=== PATIENT | male | born 1960 | race Caucasian/White ===

== ENCOUNTER → 2016-05-06 | Outpatient (CLI) | payer BC | END | disposition home or self-care (01) | LOC: C.LABMFLN 07:32 | PROVIDERS: ATTEND Family Medicine | DX: R53.83 Other fatigue (principal) ==

== ENCOUNTER → 2016-05-12 | Outpatient (CLI) | payer BC ==
--- NOTE | 2016-05-12 11:07 | DIAGNOSTIC IMAGING REPORT ---
KUB CLINICAL HISTORY: N20.1 Ureteral calculus, left L ureteral [id number] COMPARISON STUDY: No previous studies for comparison. FINDINGS: The renal shadows are partially obscured by overlying bowel gas and fecal material. No renal calculi are visualized. There is no pathologic bowel dilatation. Pelvic basin calcifications while nonspecific likely represent phleboliths. IMPRESSION: 1. No evidence of pathologic bowel dilatation 2. No renal calculi identified. Nonspecific pelvic basin calcifications, likely representing phleboliths Electronically signed by: Cj Pierre M.D. 05/12/2016 11:06 AM Dictated Date/Time: 05/12/2016 11:04 AM
--- NOTE | 2016-05-12 11:12 | DIAGNOSTIC IMAGING REPORT ---
(BARIUM SWALLOW) ESOPHAGUS CLINICAL HISTORY: R13.10 [id number] fullness when eating. COMPARISON STUDY: None FLUOROSCOPY TIME: 1.1 minutes. 27 fluoroscopic spot images were acquired.. FINDINGS: The patient swallowed effervescent granules and barium without difficulty. No esophageal masses or ulcerations are visualized. The swallowing mechanics appeared normal. There is a tiny sliding hiatal hernia. There is disordered esophageal motility. The patient was administered 1/2 inch barium tablet. He swallowed this without difficulty. This freely passed into the stomach. IMPRESSION: Tiny sliding hiatal hernia. Mildly disordered esophageal motility. No masses identified. Electronically signed by: Cj Pierre M.D. 05/12/2016 11:11 AM Dictated Date/Time: 05/12/2016 11:10 AM
== END | disposition home or self-care (01) ==
LOC: C.RAD 10:25
PROVIDERS: ATTEND Family Medicine
DX: N20.1 Calculus of ureter (principal); R13.10 Dysphagia, unspecified

== ENCOUNTER → 2016-08-20 | Outpatient (CLI) | payer BC ==
[2016-08-20 13:42] LABS: ALT/SGPT 36 U/L (12-78); AST/SGOT 21 U/L (15-37); BLOOD UREA NITROGEN 17 mg/dl (7-18); BUN/CREATININE RATIO 16.6 (10-20); CARBON DIOXIDE 28 mmol/L (21-32); CHLORIDE 104 mmol/L (98-107); CHOLESTEROL 142 mg/dl (0-200); GLUCOSE 104 mg/dl (70-99); SODIUM 141 mmol/L (136-145); TRIGLYCERIDES 110 mg/dl (0-150); VERY LOW DENSITY LIPOPROT CALC 22 mg/dl
[2016-08-20 13:45] LABS: ALB/GLOB RATIO 1.3 (0.9-2); ALKALINE PHOSPHATASE 72 U/L (45-117); CHOLESTEROL/HDL RATIO 3.3; HDL CHOLESTEROL 43 mg/dl; LDL CHOLESTEROL CALCULATED 77 mg/dl
[2016-08-20 13:47] LABS: CALCIUM 9.2 mg/dl (8.5-10.1); ESTIMATED AVERAGE GLUCOSE 134 mg/dl; HA1C FLAG Normal (Normal)
== END | disposition home or self-care (01) ==
LOC: C.LABMFLN 09:44
PROVIDERS: ATTEND Family Medicine
DX: E11.9 Type 2 diabetes mellitus without complications (principal); E78.00 Pure hypercholesterolemia, unspecified; Z12.5 Encounter for screening for malignant neoplasm of prostate

== ENCOUNTER → 2017-08-04 | Outpatient (CLI) | payer BC ==
[2017-08-04 13:28] LABS: HEMOGLOBIN A1C 6.6 % (4.5-5.6)
[2017-08-04 14:50] LABS: ALKALINE PHOSPHATASE 75 U/L (45-117); ALT/SGPT 37 U/L (12-78); AST/SGOT 21 U/L (15-37); BLOOD UREA NITROGEN 17 mg/dl (7-18); CALCIUM 8.7 mg/dl (8.5-10.1); CARBON DIOXIDE 28 mmol/L (21-32); CHOLESTEROL 135 mg/dl (0-200); CREATININE 1.18 mg/dl (0.60-1.40); GLUCOSE 109 mg/dl (70-99); LDL CHOLESTEROL CALCULATED 71 mg/dl; POTASSIUM 4.3 mmol/L (3.5-5.1); SODIUM 140 mmol/L (136-145); TOTAL PROTEIN 7.4 gm/dl (6.4-8.2)
== END | disposition home or self-care (01) ==
LOC: C.LABMFLN 08:24
PROVIDERS: ATTEND Family Medicine
DX: E11.9 Type 2 diabetes mellitus without complications (principal); E78.00 Pure hypercholesterolemia, unspecified; Z12.5 Encounter for screening for malignant neoplasm of prostate

== ENCOUNTER 2024-04-26 06:22 | Observation (INO) ==
--- NOTE | 2024-04-18 08:56 | Anesthesiology Consultation ---
Date of Service April 18, 2024 Assessment & Plan (1) Encounter for pre-operative examination: Chart Review Chart Review: Acceptable Risk for Surgery and Patient NOT seen in Pre Admission Testing - Check BSG AM DOS -Infectious Disease screening: Per PAT nursing assessment on 04/12/24. No known infectious disease contacts in past 10 days or current infectious disease symptoms. No recent travel outside the country. Patient seen by PCP 02/08/24= seen for follow up. Recently diagnosed with prostate cancer. Scheduled for robot assisted prostatectomy which is to be done by Dr. Mason on April 26, 2024. Aovid ASA and NSAIDs one week before surgery. Take amlodipine and pantoprazole DOS with 1-2 sips of water. For DM- hold Metformin starting 04/26/24- recheck creatinine 04/30/24- if acceptable- can restart Metformin. DM- Hgb A1C slightly increased. Metformin increased. Cholesterol- well controlled. Left third middle trigger finger- recommended hand specialist. History Surgery Operation Date: 04/26/24 07:30 Proposed Procedures p Robotic Assisted Laparoscopic Radical Retropubic Prostatectomy, Possible Open, Possible Pelvic Lymph Node Dissection - Dameon Mason MD Height/Weight Height: 5 ft 9 in Weight: 80.739 kg Allergies Allergy/AdvReac Type Severity Reaction Status Date / Time bee venom protein (honey bee) Allergy Severe breathing Verified 04/12/24 12:23 difficulty Medications Home Medications Medication Instructions Recorded Confirmed Last Taken ascorbic acid (vitamin C) 1,000 mg 1 g PO DAILY 07/23/21 04/12/24 07/27/21 tablet (Vitamin C) triamcinolone acetonide 55 mcg 2 spray intranasal DAILY PRN 10/27/23 04/12/24 Unknown nasal spray aerosol Eustachian tube dysfunction #16.9 mL Beets w/COQ 10 1 tab PO DAILY 01/05/24 04/12/24 Unknown magnesium oxide 400 mg PO QAM 01/05/24 04/12/24 Unknown zinc gluconate 50 mg tablet 50 mg PO QAM 01/05/24 04/12/24 Unknown atorvastatin 80 mg tablet 80 mg PO QPM #90 tabs 03/20/24 04/12/24 Unknown metformin 500 mg tablet 500 mg PO .COMPLEX #360 tabs 03/20/24 04/12/24 Unknown amlodipine 2.5 mg tablet 2.5 mg PO QAM 04/12/24 04/12/24 Unknown cinnamon bark 500 mg capsule 500 mg PO HS 04/12/24 04/12/24 Unknown (Cinnamon) losartan 100 mg tablet 100 mg PO QAM 04/12/24 04/12/24 Unknown pantoprazole 40 mg tablet,delayed 40 mg PO QAM 04/12/24 04/12/24 Unknown release (Protonix) Past Medical History Medical History (Updated 04/18/24 @ 08:51 by Lynda Godinez PA-C) Arthritis Diabetes mellitus, type 2 Esophageal dysmotility Mild per 06/2021 barium swallow study GERD (gastroesophageal reflux disease) "SILENT" Hyperlipidemia Hypertension Prostate cancer reason for surgery Past Family History Family History Mother , in her late 70s Cancer Pt uncertain of type of cancer Father , in his mid 70s Mesothelioma Diabetes Brother Hypertension Diabetes Hypercholesterolemia Sister No problems noted. Sister No problems noted. Son No problems noted. Grandfather (Paternal) Prostate cancer Other No family history of adverse response to anesthesia No family history of bleeding disorder No pertinent family history Denies family history of Heart disease Stroke Asthma Past Surgical History Surgical History H/O prostate biopsy History of colonoscopy History of esophagogastroduodenoscopy (EGD) History of knee surgery right History of tooth extraction Hx of repair of left rotator cuff [place] teeth removed Social History Smoking Status: Never smoker Do You Dip or Chew Tobacco: No Hx Alcohol Use: No alcohol intake frequency: holidays/special occasions only Hx Substance Use: No substance use type: does not use Lab Results Anesthesia Preop Results Results Anesthesia Widget: WBC 5.31 K/ul (4.8-10.8) 04/17/24 Hgb 13.4 g/dl (14.0-18.0) L 04/17/24 Hct 39.4 % (42.0-52.0) L 04/17/24 Plt 290 K/uL (130-400) 04/17/24 Na 136 mmol/L (136-145) 04/17/24 K 4.4 mmol/L (3.5-5.1) 04/17/24 Cl 101 mmol/L (98-107) 04/17/24 CO2 29 mmol/L (21-32) 04/17/24 BUN 26 mg/dl (6-23) H 04/17/24 Creat 1.30 mg/dl (0.6-1.4) 04/17/24 Glucose Level 151 mg/dl (70-99(Fasting)) H 04/17/24 Testing Laboratory Results 04/17/24= URINE CULTURE: Results pending (will leave final results to discretion of surgeon to review and determine how to proceed) Electrocardiogram Date: 04/17/24 Findings: + NSR @ (86bpm) Normal EKG per cardio Chest X-Ray Date: 04/17/24 Findings: + NAD
[2024-04-26] MEDS ORDERED: ROCURONIUM BROMIDE 10 MG/ML 5 ML VIAL IV ONE ×2 (06:54→08:05)
[2024-04-26] MEDS ORDERED: PROPOFOL IV EMULSION 10 MG/ML 20 ML VIAL IV ONE ×4 (06:54→09:46)
[2024-04-26] MEDS ORDERED: DEXAMETHASONE SOD INJ 4 MG/ML VIAL ONE (06:54)
[2024-04-26] MEDS ORDERED: LIDOCAINE 2% 2 ML VIAL/AMP(20MG/ML) INFIL ONE (06:54)
[2024-04-26] MEDS ORDERED: ONDANSETRON INJ 2 MG/ML 2 ML VIAL ONE (06:54)
[2024-04-26] MEDS ORDERED: fentaNYL citrate PF 100 MCG/2 ML VIAL ONE ×2 (06:55→08:19)
[2024-04-26] MEDS ORDERED: MIDAZOLAM HCL 1 MG/ML 2ML VIAL ONE (06:55)
[2024-04-26] MEDS ORDERED: PHENYLEPHRINE HCL 10 MG/ML VIAL ONE (06:55)
[2024-04-26] MEDS: HEPARIN SOD 5,000 UNIT/0.5 ML VIAL SQ SCH ×2 (06:58→20:13)
[2024-04-26] MEDS: LACTATED RINGER'S 1,000 ML IV SCH (06:59)
[2024-04-26] MEDS: LR 15ML/HR IV SCH (06:59)
--- NOTE | 2024-04-26 07:16 | History & Physical Report ---
Date of Service April 26, 2024 Assessment & Plan (1) Prostate cancer: Plan: We reviewed the plan for robot-assisted radical prostatectomy, bilateral pelvic lymph node dissection. We reviewed risks and benefits of surgery. He expressed understanding and would like to proceed with surgery. History of Present Illness Primary Care Provider: Tj Coronado MD This 63-year-old male followed by urology for prostate cancer. He presents to the OR today for robot-assisted radical prostatectomy and pelvic lymph node dissection. He denies any changes in his health. Allergies Allergy/AdvReac Type Severity Reaction Status Date / Time bee venom protein (honey bee) Allergy Severe breathing Verified 04/26/24 06:41 difficulty Home Medications Medication Instructions Recorded Confirmed Type ascorbic acid (vitamin C) 1,000 mg 1 g PO DAILY 07/23/21 04/26/24 History tablet (Vitamin C) triamcinolone acetonide 55 mcg 2 spray intranasal DAILY PRN 10/27/23 04/26/24 Rx nasal spray aerosol Eustachian tube dysfunction #16.9 mL Beets w/COQ 10 1 tab PO DAILY 01/05/24 04/26/24 History magnesium oxide 400 mg PO QAM 01/05/24 04/26/24 History zinc gluconate 50 mg tablet 50 mg PO QAM 01/05/24 04/26/24 History atorvastatin 80 mg tablet 80 mg PO QPM #90 tabs 03/20/24 04/26/24 Rx metformin 500 mg tablet 500 mg PO .COMPLEX #360 tabs 03/20/24 04/26/24 Rx amlodipine 2.5 mg tablet 2.5 mg PO QAM 04/12/24 04/26/24 History cinnamon bark 500 mg capsule 500 mg PO HS 04/12/24 04/26/24 History (Cinnamon) losartan 100 mg tablet 100 mg PO QAM 04/12/24 04/26/24 History pantoprazole 40 mg tablet,delayed 40 mg PO QAM 04/12/24 04/26/24 History release (Protonix) Past Med/Surg History Problem List Prostate cancer (Chronic 12/05/23) Sensation of fullness in right ear Sensorineural hearing loss (SNHL) of both ears Eustachian tube dysfunction Right ear pain Elevated PSA Hypertension, benign essential, goal below 140/90 Trigger finger, left middle finger Encounter for pre-operative examination GERD (gastroesophageal reflux disease) Dysphagia Left rotator cuff tear (Acute) Colon adenoma (Acute) Controlled diabetes mellitus with chronic kidney disease (Acute) Hypercholesterolemia (Acute) Medical History Prostate cancer reason for surgery Hypertension Esophageal dysmotility Mild per 06/2021 barium swallow study Arthritis GERD (gastroesophageal reflux disease) "SILENT" Diabetes mellitus, type 2 Hyperlipidemia Surgical History H/O prostate biopsy History of tooth extraction History of esophagogastroduodenoscopy (EGD) [place] teeth removed History of knee surgery right History of colonoscopy Hx of repair of left rotator cuff Family History Mother , in her late 70s Cancer Pt uncertain of type of cancer Father , in his mid 70s Mesothelioma Diabetes Brother Hypertension Diabetes Hypercholesterolemia Sister No problems noted. Sister No problems noted. Son No problems noted. Grandfather (Paternal) Prostate cancer Other No family history of adverse response to anesthesia No family history of bleeding disorder No pertinent family history Denies family history of Heart disease Stroke Asthma Social History (Updated 01/05/24 @ 10:41 by Cari Huerta RN) Smoking Status: Never smoker Second Hand Exposure: Yes (as a child); Do You Dip or Chew Tobacco: No; Hx Alcohol Use: No Hx Substance Use: No Preferred Language: [place] Citizen Communication Ability: Effective Visual Impairment: No Limitations Hearing Ability: Normal Sales Product Manager Required: No Beliefs That Will Affect Care: None marital status: Current Living Situation: Spouse current occupational status: employed current occupation: Tractor Driver How many Children do You have: 1 Feels Safe at Home: Yes Safety Concerns: Feels Safe At This Time caffeine: Yes (coffee, soda ) during the past year weight has: remained stable Seatbelt Use: sometimes Assistive Devices: Hearing Aid - Bilateral Assistive Devices Comment: partial plates Review of Systems 12 point review of systems negative except for otherwise indicated. Physical Exam Constitutional: well developed and well nourished; no acute distress Eyes: + anicteric sclerae; pupils not irregula r Respiratory: normal respiratory effort; no respiratory distress, does not use accessory muscles and no cough Cardiovascular: well perfused Gastrointestinal (Abdomen): Inspection/Auscultation: abdomen normal to inspection; abdomen not distended Musculoskeletal: Extremities: extremities normal to inspection Skin: normal turgor; no rashes and no lesions Neurologic: moves all extremities and awake Psychiatric: Orientation: alert and oriented x 3 Results & Data Vital Signs (Past 12 Hours) Vital Signs Temp Pulse Resp BP Pulse Ox O2 Del Method 04/26/24 06:44 36.6 C 79 20 146/100 H 96 Room Air
[2024-04-26] MEDS ORDERED: HYDROmorphone INJ 2 MG/ML SYR/VIAL IV PRN (07:18)
[2024-04-26] MEDS ORDERED: ePHEDrine sulfate 50 MG/ML AMP IV PRN (07:18)
[2024-04-26] MEDS ORDERED: fentaNYL citrate PF 100 MCG/2 ML VIAL IV PRN (07:18)
[2024-04-26] MEDS ORDERED: ATROPINE SULFATE 0.1 MG/ML 10ML SYR IV PRN (07:18)
[2024-04-26] MEDS ORDERED: ONDANSETRON INJ 2 MG/ML 2 ML VIAL IV PRN ×2 (07:18→13:40)
[2024-04-26] MEDS ORDERED: ACETAMINOPHEN 1000 MG/100 ML IV IV ONE (07:22)
[2024-04-26] MEDS: ceFAZolin 2000MG 2,000 MG/15 ML SYR IV SCH ×2 (07:50→16:23)
[2024-04-26] MEDS: SURGICEL ABSORB HEMOSTAT 2IN X 14IN TOP ONE (10:19)
[2024-04-26] MEDS ORDERED: SUGAMMADEX SODIUM 200 MG/2 ML VIAL IV ONE (10:41)
[2024-04-26] MEDS ORDERED: HYDROmorphone INJ 2 MG/ML SYR/VIAL ONE (10:43)
[2024-04-26] MEDS: BUPIVACAINE 0.5 % 5 MG/1 ML MPF 30ML VIAL ONE (11:00)
--- NOTE | 2024-04-26 11:37 | Operative Report ---
PG Post Operative Report Pre & Post Diagnosis Operation Date: 04/26/24 07:30 Pre-Op Diagnosis: Prostate Cancer Post-Op Diagnosis: Prostate Cancer I identified the patient and participated in the time-out.: Yes Procedure Operation Date: 04/26/24 07:30 Actual Procedures p Robotic Assisted Laparoscopic Radical Retropubic Prostatectomy and Pelvic Lymph Node Dissection(Not Applicable) - Dameon Mason MD Surgeon Dameon Mason MD Chuck Splitter [facility] [place] Estimated Blood Loss 100 Findings Consistent with Post-Op Diagnosis Specimens 1) periprostatic fat 2) right pelvic lymph nodes 3) left pelvic lymph nodes 4) prostate, vas deferens, seminal vesicles 5) frozen section: Bladder neck Drains Kelley catheter per urethra Anesthesia Type General Complications none Disposition Accompanied Patient To Recovery: Yes Disposition: Recovery Room Indications This is a 63-year-old male followed by urology for prostate cancer. He presents for radical prostatectomy and pelvic lymph node dissection. Description of Procedure The patient was identified in the preoperative holding area and informed consent was confirmed. He was then brought to the operating room where general anesthesia was initiated. He was placed supine on the operating room table with all pressure points appropriately padded. His abdomen and genitalia were prepped and draped in the usual sterile fashion and a timeout was performed. A 2 cm incision was made above the umbilicus and then a Veress needle was used to obtain access to the abdomen. Proper position was confirmed with the drop test and low initial insufflation pressure. The abdomen was insufflated with CO2 to a pressure of 15 mmHg. An 8 mm robotic port was placed in the incision and the robotic camera was inserted. The abdominal cavity was surveyed, demonstrating minimal adhesions. There was no injury to intra-abdominal contents. The remaining robotic ports were placed under direct visualization, with 2 robotic ports on the left side and 1 robotic port on the right. A 12 mm field technical assistant port was placed on the right side as well, and a 5 mm field technical assistant port was placed in the right upper quadrant. The robot was then docked. I sharply divided a couple adhesions in the left lower quadrant to free the sigmoid away from the pelvis. Using electrocautery, the bladder was then dropped from the anterior wall of the abdomen, exposing the space of Retzius. This dissection was carried down to expose the pelvic brim and subsequently the anterior surface of the prostate and the endopelvic fascia. The fat overlying the anterior of the prostate was removed and sent for pathologic analysis, labeled as 'periprostatic fat'. The endopelvic fascia was then divided on each side to expose the lateral aspects of the prostate and the lateral aspects of the pedicles. A single 3-0 V-Loc suture was used to ligate the dorsal venous complex to prevent backbleeding in subsequent steps. The fourth arm of the robot was then used to put some gentle traction on the bladder, and the bladder neck was identified. Using electrocautery, the anterior bladder neck was dissected to expose the Kelley catheter, whose tip was removed from the bladder and held anteriorly. The posterior bladder neck dissection was then completed. During the posterior bladder neck, the tissue was somewhat more blanched than normal and fairly adherent to the prostate. during this dissection I entered the bladder in a second location. Prior to bladder repair, I opted to free of the surrounding tissue to facilitate exposure. At this point bilateral vas deferens were exposed and isolated. The vas deferens were cauterized and then divided. Bilateral seminal vesicles were dissected out as well. Denonvilliers fascia was then divided and the posterior prostate dissection was carried up as far as possible toward the urethra. Inspection of the bladder neck demonstrated more tissue than I typically expect to see in this area. The tissue dissected around the bladder neck was also somewhat more blanched than usual. I elected to send a sample of this for frozen section called "bladder neck". This returned as normal smooth muscle tissue. At this time I repaired the cystotomy using 3-0 Vicryl suture. The pedicles were then divided using combination of clips and sharp dissection, trying to use minimal electrocautery. On the right side, a nerve sparing approach was used. On the left side, a non-nerve sparing approach was used. Attention was turned anteriorly and the dorsal venous complex was divided using sharp dissection and electrocautery. The urethra was isolated and then divided sharply. At this point, the prostate was free and was placed in a specimen bag. Bilateral pelvic lymph node dissection was then performed, and the nan tissue was sent for pathologic analysis. The pelvis was inspected and meticulous hemostasis was ensured. Double-armed V- Loc suture was then used to re-anastomose the bladder neck with the urethra. Once this was complete, the anastomosis was tested by instilling 60 mL of normal saline into the bladder. Satisfied that the anastomosis was watertight, the catheter balloon was inflated with 10 mL of normal saline. Surgicel was then applied to the lateral aspects of the pelvis for hemostasis. The robot was then undocked. The supraumbilical incision was extended and the prostate was extracted. 0 Vicryl suture was then used to close the fascia at this incision. All skin incisions were closed with 4-0 Monocryl suture and then a layer of Dermabond was applied. The patient was then awakened from anesthesia and was brought to the PACU in stable condition. CAM Bowie acted as the bedside field technical assistant for the duration of the case. She assisted with gaining access, providing retraction and suction, passing in sutures and applying clips as needed. She also helped with specimen extraction and closing. I attest to the content of the Intraoperative Record and any orders documented therein. Any exceptions are noted below.
[2024-04-26] MEDS ORDERED: PHARMACY GLYCEMIC MGMT CONSULT PRN (13:40)
[2024-04-26] MEDS ORDERED: oxyCODONE HCL IR 5 MG TAB (IMMEDIATE RELEASE) PO PRN (13:40)
[2024-04-26] MEDS ORDERED: HYDROmorphone INJ 0.5 MG/0.5 ML SYR IV PRN ×2 (13:40)
--- NOTE | 2024-04-26 13:55 | Pharmacy Report ---
Pharmacy Glycemic Short Note 2 - Date of Service April 26, 2024 - Glycemic Short BSG Results (Last 24 hours): 04/26/24 04/26/24 06:37 11:30 POC Glucose 134 H 224 H OUTPATIENT ANTIDIABETIC REGIMEN: * metformin 1 gm bid ASSESSMENT: * 63 year old s/p surgery, POD 0 - pharmacy consulted for glycemic management. Postop BSG >200 - however does appear steroids pulled in OR previously this morning. Will give Lantus 0.2 units/kg x 1 now and start novolog as I anticipate ongoing steroid induced hyperglycemia today. PLAN FOR INPATIENT GLYCEMIC CONTROL: * Hold outpatient oral diabetes medications * Basal insulin * Lantus 18 units x 1 (to cover IV dexamethasone) * Bolus insulin * NovoLog per scale ACHS or Q6hrs while NPO * Goal Range: Low 110 mg/dL - High 140 mg/dL * Correction Factor: 20 mg/dL/unit * Nutritional / Prandial insulin per carb ratio of 1 unit per 7 grams CHO consumed
[2024-04-26] MEDS ORDERED: GLUCAGON FOR INJ 1 MG VIAL SQ PRN (14:00)
[2024-04-26] MEDS ORDERED: GLUCOSE 10 TAB/TUBE PO PRN (14:00)
[2024-04-26] MEDS ORDERED: CARBOHYDRATES FOR HYPOGLYCEMIA PO PRN (14:00)
[2024-04-26] MEDS ORDERED: GLUCOSE 40% GEL 15 GM TUBE PO PRN (14:00)
[2024-04-26] MEDS ORDERED: DEXTROSE 50% 50 ML SYRINGE IV PRN (14:00)
[2024-04-26] MEDS: SODIUM CHLORIDE 0.9% 1,000 ML IV SCH (14:01)
--- NOTE | 2024-04-26 14:21 | Anesthesiology Progress Note ---
Date of Service April 26, 2024 Anesthesia Post Procedure Vital Signs Vital Signs: Temp Pulse Resp BP BP Pulse Ox O2 Del Method 04/26/24 14:10 97.9 F 84 20 117/77 91 Nasal Cannula 04/26/24 13:42 98.1 F 87 20 118/80 91 Nasal Cannula 04/26/24 13:40 98.1 F 88 20 118/80 91 Nasal Cannula 04/26/24 13:05 13 125/85 94 Nasal Cannula 04/26/24 12:55 13 120/80 96 Nasal Cannula 04/26/24 12:45 97.5 F L 90 13 118/75 94 Nasal Cannula 04/26/24 12:35 90 12 121/76 94 Nasal Cannula 04/26/24 12:25 92 H 16 121/72 92 Oxymask 04/26/24 12:15 94 H 18 116/75 95 Oxymask 04/26/24 12:05 95 H 14 118/74 91 Oxymask 04/26/24 11:55 90 14 131/84 92 Oxymask 04/26/24 11:45 87 14 130/86 90 Oxymask 04/26/24 11:35 83 15 129/79 90 Oxymask 04/26/24 11:26 97.2 F L 81 18 121/80 90 Oxymask 04/26/24 06:44 97.9 F 79 20 146/100 H 96 Room Air O2 Flow Rate 04/26/24 14:10 4 04/26/24 13:42 4 04/26/24 13:40 4 04/26/24 13:05 4 04/26/24 12:55 3 04/26/24 12:45 4 04/26/24 12:35 4 04/26/24 12:25 8 04/26/24 12:15 10 04/26/24 12:05 15 04/26/24 11:55 15 04/26/24 11:45 15 04/26/24 11:35 15 04/26/24 11:26 15 04/26/24 06:44 Transfer of Care Handoff Completed per policy Notes Mental Status: alert / awake / arousable and participated in evaluation Patient Amnestic to Procedure: Yes Nausea / Vomiting: adequately controlled Pain: adequately controlled Airway Patency, RR, SpO2: stable & adequate BP & HR: stable & adequate Hydration State: stable & adequate Anesthetic Complications: no major complications apparent and Pt Satisfied with anesthetic care
[2024-04-26] MEDS: LANTUS PER UNIT CHARGE SC ONE (15:02)
[2024-04-26] MEDS: INSULIN ASPART PER UNIT CHARGE SC SCH ×2 (15:03→23:44)
[2024-04-26] MEDS: ACETAMINOPHEN 325 MG TAB PO SCH (15:03)
[2024-04-26] MEDS: oxyCODONE HCL IR 5 MG TAB (IMMEDIATE RELEASE) PO PRN (15:52)
[2024-04-26] MEDS: DOCUSATE SODIUM 100 MG CAP PO SCH (20:13)
[2024-04-26] MEDS: ATORVASTATIN 40 MG TAB PO SCH (20:13)
[2024-04-27 07:19] VITALS: PULSE 81; RESP 17; TEMP 98.4; O2SAT 92
[2024-04-27] MEDS: ASCORBIC ACID 500 MG TAB PO SCH (08:11)
[2024-04-27] MEDS: LOSARTAN POTASSIUM 50 MG TAB PO SCH (08:11)
[2024-04-27] MEDS: PANTOprazole 40 MG TAB PO SCH (08:11)
[2024-04-27] MEDS: MAGNESIUM OXIDE 400 MG TAB PO SCH (08:11)
[2024-04-27] MEDS: amLODIPine BESYLATE 5 MG TAB PO SCH (08:12)
[2024-04-27 09:16] LABS: Basophils # (auto) 0.01 K/uL (0.00-0.20); Basophils % (auto) 0.1 %; Eosinophils # (auto) 0.01 K/uL (0.00-0.50); Eosinophils % (auto) 0.1 %; Hematocrit (blood only) 35.4 % (42.0-52.0); Hemoglobin 11.9 g/dl (14.0-18.0); Immature Granulocytes # (auto) 0.04 K/uL (0.01-0.20); Immature Granulocytes % (auto) 0.3 %; Lymphocytes # (auto) 0.91 K/uL (1.20-3.40); Lymphocytes % (auto) 7.8 %; Mean Corpuscular Hemoglobin 29.9 pg (25.0-34.0); Mean Corpuscular Hgb Conc 33.6 g/dL (32.0-36.0); Mean Corpuscular Volume 88.9 fL (80.0-100.0); Mean Platelet Volume 9.5 fL (9.4-12.4); Monocytes # (auto) 0.88 K/uL (0.11-0.59); Monocytes % (auto) 7.6 %; Neutrophils # (auto) 9.77 K/uL (1.40-6.50); Neutrophils % (auto) 84.1 %; Platelet Count 232 K/uL (130-400); RDW Standard Deviation 42.4 fL (36.4-46.3); Red Blood Count 3.98 M/uL (4.70-6.10); White Blood Count 11.62 K/ul (4.8-10.8)
--- NOTE | 2024-04-27 09:23 | Urology Progress Note ---
Date of Service April 27, 2024 Assessment & Plan (1) Prostate cancer: Plan: 63 yo/M POD #1 s/p Robotic Laparoscopic-Assisted Radical Retropubic Prostatectomy with Dr. Mason. - Doing well, recovery on pace - Afebrile with stable vitals - Post op lab work reviewed and as expected - Minimal pain - Tolerating regular diet and ambulating - Incisions appropriate - Kelley catheter patent with clear urine - Maintain Kelley catheter upon discharge - Expected clinical course reviewed, all questions answered - Patient ready for discharge now, orders placed - Will arrange post operative follow-up with Dr. Mason Admission and Anticipated Discharge Date Admission Date: April 26, 2024 Subjective Patient seen and examined at bedside this morning. He is awake and resting in bed. No acute issues overnight, though reports poor sleep. Tolerating regular diet. Ambulating. Denies nausea, vomiting, fever or chills. Review of Systems Constitutional: as per Subjective / HPI Genitourinary: + as per Subjective / HPI Physical Exam Constitutional: well developed and well nourished; no acute distress Respiratory: normal respiratory effort; no respiratory distress and no labored breathing Gastrointestinal (Abdomen): Inspection/Auscultation: abdomen normal to inspe ction Percussion/Palpation: abdomen soft Musculoskeletal: Head/Neck/Chest: normocephalic Skin: Incisions C/D/I with dermabond Neurologic: moves all extremities and awake Psychiatric: Orientation: alert and oriented x 3 Genitourinary: Kelley draining clear urine Results & Data Vital Signs (Past 12 Hours) Vital Signs Temp Pulse Resp BP Pulse Ox O2 Del Method 04/27/24 07:17 36.9 C 81 17 136/93 92 Room Air 04/27/24 04:00 36.6 C 78 18 116/74 91 Room Air 04/27/24 00:00 37.0 C 81 16 92/50 L 93 Room Air PG Care Time/CCT Total # of Minutes Spent Total Time Spent with Patient: Total time spent is greater than 50% in coordination of care (as documented) at patient's floor/unit and/or counseling patient: Coding Level of Care Code None Diagnoses Prostate cancer C61
[2024-04-27 09:33] LABS: BUN Creatinine Ratio 17.3 (10-20); Calcium 8.7 mg/dl (8.6-10.3); Creatinine Clr Calc Pharmacy 72.7 ml/min; Potassium 3.9 mmol/L (3.5-5.1)
[2024-04-27 09:50] VITALS: BP 119/75
--- NOTE | 2024-04-27 11:17 | Discharge Summary ---
Date of Service April 27, 2024 Admission HPI Per Admitting Provider This 63-year-old male followed by urology for prostate cancer. He presents to the OR today for robot-assisted radical prostatectomy and pelvic lymph node dissection. He denies any changes in his health. Principal Diagnosis Prostate cancer Discharge Exam Constitutional well developed and well nourished; no acute distress Respiratory normal respiratory effort; no respiratory distress and no labored breathing Gastrointestinal (Abdomen) Inspection/Auscultation: abdomen normal to inspection Percussion/Palpation: abdomen soft Musculoskeletal Head/Neck/Chest: normocephalic Skin Incisions c/d/i Neurologic moves all extremities and awake Psychiatric Orientation: alert and oriented x 3 Discharge Data Allergies Allergy/AdvReac Type Severity Reaction Status Date / Time bee venom protein (honey bee) Allergy Severe breathing Verified 04/26/24 06:41 difficulty Procedures Performed Operation Date: 04/26/24 07:30 Actual Procedures p Robotic Assisted Laparoscopic Radical Retropubic Prostatectomy and Pelvic Lymph Node Dissection(Not Applicable) - Dameon Mason MD Hospital Course (1) Prostate cancer: 63 yo/M POD #1 s/p Robotic Laparoscopic-Assisted Radical Retropubic Prostatectomy with Dr. Mason. - Doing well, recovery on pace - Afebrile with stable vitals - Post op lab work reviewed and as expected - Minimal pain - Tolerating regular diet and ambulating - Incisions appropriate - [place] catheter patent with clear urine - Maintain [place] catheter upon discharge - Expected clinical course reviewed, all questions answered - Patient ready for discharge now, orders placed - Will arrange post operative follow-up with Dr. Mason Total Time Total Time Spent Total Time Spent (In Minutes): 29 Discharge Plan Discharge Items Patient Disposition: Home - Self-Care Reason For Visit: Prostate Cancer Discharge Diagnosis: prostate cancer Activity: Per Instructions section Lifting: No more than 10 pounds Bathing Comment: Okay to shower after discharge, no tub bath or soaking Sexual Activity: Wait until after follow-up appointment Exercise/Sports: Wait until after follow-up appointment Non-emergency contact: Surgeon and Urologist Call non-emergency contact if: your pain is not controlled, you have a fever, your temperature is above 101, your wound has increased redness, your wound has increased drainage and your wound pain has increased Follow-up/Referrals: Tj Coronado MD [Primary Care Provider] - Dameon Mason MD [Physician] - (THE OFFICE WILL CALL YOU WITH A HOSPITAL FOLLOW UP VISIT) Diet: Carb Consistent or DM2 Addtl Attending Provider Instructions: The surgery you had was: Robot-assisted radical prostatectomy with bilateral pelvic lymph node dissection. Please take all medications as prescribed and keep all follow-ups as scheduled. Please call our office at [phone] with any questions, concerns or need to reschedule appointments for any reason. We are happy to assist you Medications: Please take all medications as prescribed. For pain control, you can take tylenol every 6 hours. You can also take ibuprofen every 6 hours. If you have been prescribed a narcotic pain medication, please take this according to the instructions on the label. You have been prescribed a single dose of antibiotics (Bactrim) to be taken 1 hour prior to your appointment for menchaca catheter removal. Activity: We recommend having someone with you for the first few days after surgery to help care for you. For the first 2 weeks after surgery, we would like you to get up and walk around your house. However, we recommend limit physical activity that would increase your heart rate. This will allow your body to rest and heal. Take naps if you feel tired. Don't lift anything heavier than 10 pounds, mow the law or ride a bicycle until your follow-up appointment. Please avoid long car rides. Home Care: Unless directed otherwise, drink 6 to 8 glasses of water a day (enough to keep your urine light colored). This will also help keep a healthy flow of urine. We recommend using a stool softener such as colace or miralax for the first two weeks to avoid constipation. Men[place]aca Catheter care: Keep the catheter well secured with either a leg back or leg strap with large bag. Empty your bag when it's about half full. You may notice some blood in the bag. This is normal after surgery and while the catheter is in place. Use mild soap (such as Dove or Dial) and water to wash the catheter and the head of your penis daily, or more frequently if needed. Return to your normal diet, we encourage good protein intake to promote healing. You may shower as normal. Please avoid tub baths or soaking until catheter removed and incisions well healed. Wearing sweat pants while you have the catheter is recommended, they will be more comfortable. Follow-up We will have you come to the office in approximately 2 weeks for catheter removal. - Please remember to take your dose of antibiotics 1 hour prior to this appointment. We will review pathology results at that appointment and discuss further followup. Call [facility] at [phone] right away if you have any of the following: Chest pain or trouble breathing (call 911 or go to the hospital) Fever of 101F or higher, uncontrolled vomiting Heavy bleeding, clots, or bright red blood from the catheter Catheter that falls out or stops draining Foul-smelling discharge from your catheter Redness, swelling, warmth, or increased pain at your incision site Drainage, pus, or bleeding from your incision Pending Studies at Discharge: Yes Stand-Alone Forms: My [facility] Medications and DC Order Prescriptions: New sulfamethoxazole-trimethoprim [Bactrim DS] 800-160 mg tablet 1 tab PO ONCE 1 Days Qty: 1 0RF Rx Instructions: take 1 hour prior to menchaca catheter removal oxycodone-acetaminophen [Percocet] 5-325 mg tablet 1 tab PO TID PRN (Reason: pain) Qty: 7 0RF Continued zinc gluconate 50 mg tablet 50 mg PO QAM magnesium oxide 400 mg magnesium tablet 400 mg PO QAM Beets w/COQ 10 1 tab PO DAILY atorvastatin 80 mg tablet 80 mg PO QPM Qty: 90 3RF metformin 500 mg tablet 500 mg PO .COMPLEX Qty: 360 3RF Rx Instructions: 500 mg orally 2 in am and 2 in pm; take with food. triamcinolone acetonide 55 mcg aerosol,spray 2 spray intranasal DAILY PRN (Reason: Eustachian tube dysfunction) Qty: 16.9 11RF Rx Instructions: administer into each nostril ascorbic acid (vitamin C) [Vitamin C] 1,000 mg Tablet 1 g PO DAILY amlodipine 2.5 mg tablet 2.5 mg PO QAM pantoprazole [Protonix] 40 mg tablet,delayed release (DR/EC) 40 mg PO QAM losartan 100 mg tablet 100 mg PO QAM cinnamon bark [Cinnamon] 500 mg Capsule 500 mg PO HS Discharge Orders: Discharge Order (Routine); Ordered 04/27/24 Ordered By: Celine Purcell/Other Patient Handouts: DVT Post Op Prevention Admission Data Admit Date/Time: 04/26/24 11:15 Attending Provider: Dameon Mason Admit Provider: Dameon Mason Primary Care Provider: Tj Coronado Other Interventions: Discharge Summary Assessment (RN) Last Done: 04/27/24 09:49 Coding Level of Care Code 66501 IN/OBS DISCH 30 MIN/LESS Diagnoses Prostate cancer C61
== END 2024-04-27 11:46 | disposition home or self-care (01) | DRG 708 ==
LOC: ASU 06:22 → 3N 11:15 → INTOOBSV 11:15